=== PATIENT | male | born 1960 | race Caucasian/White ===

== ENCOUNTER 2016-08-17 07:08 | Outpatient (CLI) | payer OTHER ==
[2016-08-17 12:37] LABS: BILIRUBIN,URINE NEGATIVE (NEGATIVE)
[2016-08-17 13:31] LABS: HEMOGLOBIN A1C 0.67 g/dL
[2016-08-17 13:44] LABS: ALBUMIN/GLOBULIN RATIO 1.4 (1.0-2.2); BILIRUBIN,TOTAL 0.7 mg/dL (0.2-1.0); BUN - BLOOD UREA NITROGEN 23 mg/dL (6-20); CARBON DIOXIDE - CO2 23 mmol/L (21-32); CHLORIDE 102 mmol/L (101-111); CHOL/HDL RATIO 6.3 (<5.0); CHOLESTEROL 188 mg/dL; CREATININE 0.9 mg/dL (0.6-1.2); GFR - MDRD 87 (>89); GLUCOSE 111 mg/dL (70-100); HDL CHOLESTEROL 30 mg/dL; LDL/HDL RATIO 3.3 (<3.6); POTASSIUM 3.9 mmol/L (3.5-5.0); SODIUM 136 mmol/L (135-145); TOTAL PROTEIN 7.3 g/dL (6.7-8.2); TRIGLYCERIDES 289 mg/dL; VLDL CHOLESTEROL 58 mg/dL
== END 2016-08-17 07:09 | disposition home or self-care (01) ==
LOC: LAB.WCP 07:08
PROVIDERS: ATTEND Family Medicine
DX: E74.39 Other disorders of intestinal carbohydrate absorption (principal); E78.5 Hyperlipidemia, unspecified; I10 Essential (primary) hypertension; Z87.442 Personal history of urinary calculi; Z12.5 Encounter for screening for malignant neoplasm of prostate
CPT/HCPCS: 36415; 80053; 80061; 81001; 83036; 84153

== ENCOUNTER 2017-09-09 07:40 | Outpatient (CLI) | payer OTHER ==
[2017-09-09 12:55] LABS: ALBUMIN 4.2 g/dL (3.2-5.5); ALBUMIN/GLOBULIN RATIO 1.3 (1.0-2.2); ALKALINE PHOSPHATASE 66 IU/L (42-121); ALT ALANINE AMINOTRANSFERASE 27 IU/L (10-60); AST ASPARTATE AMINOTRANSFERASE 27 IU/L (10-42); BILIRUBIN,TOTAL 0.9 mg/dL (0.2-1.0); BUN - BLOOD UREA NITROGEN 18 mg/dL (6-20); CALCIUM 8.9 mg/dL (8.5-10.3); CARBON DIOXIDE - CO2 25 mmol/L (21-32); CHLORIDE 100 mmol/L (101-111); CHOL/HDL RATIO 4.5 (<5.0); CHOLESTEROL 166 mg/dL; GFR - MDRD 76 (>89); GLUCOSE 111 mg/dL (70-100); HDL CHOLESTEROL 37 mg/dL; LDL CHOLESTEROL,CALCULATED 73 mg/dL; SODIUM 134 mmol/L (135-145); TOTAL PROTEIN 7.4 g/dL (6.7-8.2); VLDL CHOLESTEROL 56 mg/dL
[2017-09-09 13:29] LABS: HB2 TOTAL 17.5 g/dL; HEMOGLOBIN A1C 0.67 g/dL; HEMOGLOBIN A1C % 5.7 % (4.6-6.2)
== END 2017-09-09 23:59 | disposition home or self-care (01) ==
LOC: LAB.WCP 07:40
PROVIDERS: ATTEND Family Medicine
DX: E74.39 Other disorders of intestinal carbohydrate absorption (principal); E78.5 Hyperlipidemia, unspecified; I10 Essential (primary) hypertension; Z12.5 Encounter for screening for malignant neoplasm of prostate
CPT/HCPCS: 36415; 80053; 80061; 83036; 83721; 84153

== ENCOUNTER 2017-09-21 18:52 | Outpatient (CLI) | payer OTHER ==
--- NOTE | 2017-09-22 11:15 | Ultrasound Report ---
Procedure Date: 09/21/2017 Accession Number: [id number] / [id number] Procedure: US - Abdomen Complete CPT Code: FULL RESULT: EXAM: Abdomen Complete DATE: 09/21/2017 8:31 PM CLINICAL HISTORY: FLANK PAIN,RIGHT COMPARISON: None. TECHNIQUE: Real-time scanning was performed with static images obtained. FINDINGS: Liver: Enlarged and echogenic, compatible with fatty infiltration 23 cm. Main portal vein flow: Hepatopetal. Gallbladder: Cholelithiasis. No wall thickening or pericholecystic fluid. Biliary System: Common bile duct measures 3 mm. No intrahepatic or extrahepatic ductal dilatation. Pancreas: Visualized portion is unremarkable. Kidneys: Right: 13 cm longitudinally. Cortical cysts. No hydronephrosis. Left: 12 cm longitudinally. Cortical cysts. Possible nonobstructing calculus. No hydronephrosis. Spleen: 11.6 cm. Normal in size and echotexture. Aorta and Inferior Vena Cava: Unremarkable. IMPRESSION: Fatty infiltration the liver. Cholelithiasis, without evidence of biliary obstruction. Possible nonobstructing left renal calculus. If clinically warranted, CT would be more sensitive. RADIA
== END 2017-09-21 18:53 | disposition home or self-care (01) ==
LOC: DI 18:52
PROVIDERS: ATTEND Family Medicine
DX: K76.0 Fatty (change of) liver, not elsewhere classified (principal); K80.20 Calculus of gallbladder without cholecystitis without obstruction
CPT/HCPCS: 76700

== ENCOUNTER 2017-10-18 11:35 | Outpatient (CLI) | payer OTHER ==
[2017-10-18] MEDS ORDERED: SINCALIDE 5 MCG VIAL ONE (13:59)
--- NOTE | 2017-10-18 15:50 | Nuclear Medicine Report ---
Procedure Date: 10/18/2017 Accession Number: [id number] / [id number] Procedure: NM - Hepatobiliary HIDA w/ Rx CPT Code: FULL RESULT: EXAM: HEPATOBILIARY SCAN WITH CCK/KINEVAC ADMINISTRATION EXAM DATE: 10/18/2017 11:54 AM. CLINICAL HISTORY: FLANK PAIN, RIGHT. COMPARISON: 09/21/2017. TECHNIQUE: Following the intravenous administration of 5.3 mCi of Tc99m Mebrofenin, a hepatobiliary scan was done centered on the liver and gallbladder in multiple sequential images and projections. Following the intravenous administration of 2.98 mcg of CCK/ Kinevac over the course of approximately 60 minutes, dynamic imaging was done and the gallbladder ejection fraction was calculated. FINDINGS: Normal extraction of tracer from the blood pool indicating normal hepatocellular function. The liver size and shape is grossly within normal limits. There is activity visualized within the bile ducts, gallbladder, and small bowel within the first hour. With CCK administration, the gallbladder demonstrates an effective contraction. The gallbladder ejection fraction is calculated to be 21%, well below the lower limit of normal of 38% for a 60-minute injection. The patient did not report symptoms after CCK administration. No evidence of enteric reflux into the stomach. No significant collection of tracer remaining in the common bile duct by the end of the study. IMPRESSION: 1. Patent cystic duct. 2. Patent common bile duct. 3. Negative for acute cholecystitis. 4. No enterogastric bile reflux. 5. Gallbladder ejection fraction of 21%. In the presence of gallstones, this is consistent with chronic cholecystitis. RADIA
== END 2017-10-18 11:36 | disposition home or self-care (01) ==
LOC: DI 11:35
PROVIDERS: ATTEND Family Medicine
DX: R10.9 Unspecified abdominal pain (principal); I10 Essential (primary) hypertension; E66.01 Morbid (severe) obesity due to excess calories
CPT/HCPCS: 78227

== ENCOUNTER 2017-11-23 15:37 | Outpatient (CLI) | payer OTHER ==
[2017-11-23 16:43] LABS: BILIRUBIN,URINE NEGATIVE (NEGATIVE); GLUCOSE, URINE (UA) NEGATIVE (NEGATIVE); KETONES,URINE (UA) NEGATIVE (NEGATIVE); LEUKOCYTE ESTERASE, URINE NEGATIVE (NEGATIVE); NITRITE,URINE NEGATIVE (NEGATIVE); OCCULT BLOOD,URINE TRACE-INTA (NEGATIVE); PROTEIN,URINE NEGATIVE (NEGATIVE); UROBILINOGEN,URINE 0.2 (NORMAL) E.U./dL (NORMAL)
[2017-11-23 16:44] LABS: BASOPHILS % (AUTO) 0.5 %; EOSINOPHILS # (AUTO) 0.1 10^3/uL (0.0-0.7); EOSINOPHILS % (AUTO) 0.8 %; HGB - HEMOGLOBIN 14.9 g/dL (14.0-18.0); LYMPHOCYTES % (AUTO) 27.9 %; MEAN CORPUSCULAR HEMOGLOBIN 30.4 pg (27.0-31.0); MEAN CORPUSCULAR VOLUME 86.9 fL (80.0-94.0); MEAN PLATELET VOLUME 7.4 fL (7.4-11.4); MONOCYTES # (AUTO) 0.7 10^3/uL (0.0-1.0); MONOCYTES % (AUTO) 6.8 %; NEUTROPHILS # (AUTO) 6.8 10^3/uL (1.5-6.6); PLT - PLATELET COUNT 307 10^3/uL (130-450); RED BLOOD COUNT 4.91 10^6/uL (4.70-6.10); RED CELL DISTRIBUTION WIDTH 12.6 % (12.0-15.0); WHITE BLOOD COUNT 10.6 x10^3/uL (4.8-10.8)
[2017-11-23 16:50] LABS: BACTERIA,URINE Rare /HPF (None Seen); CLARITY,URINE CLEAR (CLEAR); SQUAMOUS EPITHELIAL CELL,UR RARE Squamous (<= Few)
[2017-11-23 16:57] LABS: ALBUMIN 4.2 g/dL (3.2-5.5); ALBUMIN/GLOBULIN RATIO 1.4 (1.0-2.2); BILIRUBIN,TOTAL 0.7 mg/dL (0.2-1.0); CALCIUM 8.9 mg/dL (8.5-10.3); CREATININE 1.2 mg/dL (0.6-1.2); TOTAL PROTEIN 7.2 g/dL (6.7-8.2)
== END 2017-11-23 15:38 | disposition home or self-care (01) ==
LOC: LAB 15:37
PROVIDERS: ATTEND Internal Medicine Gastroenterology
DX: I10 Essential (primary) hypertension (principal); Z87.442 Personal history of urinary calculi
CPT/HCPCS: 36415; 80053; 81001; 83690; 85025; 87086

== ENCOUNTER 2017-11-23 15:44 | Outpatient (CLI) | payer OTHER | END 2017-11-23 15:45 | disposition home or self-care (01) | LOC: RT 15:44 | PROVIDERS: ATTEND Internal Medicine Gastroenterology | DX: I10 Essential (primary) hypertension (principal); Z87.442 Personal history of urinary calculi | CPT/HCPCS: 36415; 80053; 81001; 83690; 85025; 87086; 93005 ==

== ENCOUNTER 2017-11-28 06:06 | Day surgery (SDC) | payer OTHER ==
[2017-11-28] MEDS ORDERED: LACTATED RINGERS 1,000 ML IV ONE ×2 (07:00→09:48)
[2017-11-28] MEDS ORDERED: ceFAZolin 2 GM/50 ML 2 GM/50 ML BAG IV ONE (07:08)
[2017-11-28] MEDS ORDERED: ceFAZolin 1 GM VIAL ONE (07:09)
--- NOTE | 2017-11-28 07:14 | ANESTHESIA ---
Pre-Anesthesia VS, & Labs - Diagnosis Cholelithiasis - Procedure Lap iliana Vital Signs: Temp Pulse Resp BP Pulse Ox 36.4 C L 18 121/84 H 96 11/28/17 06:30 11/28/17 06:30 11/28/17 06:30 11/28/17 06:30 Height 5 ft 11 in Weight (kg) 116.5 kg - NPO >8 hours - Lab Results Lab results reviewed: Yes Home Medications and Allergies Home Medications: Ambulatory Orders Medication Instructions Recorded Confirmed Lisinopril 20 mg PO DAILY 11/25/17 11/28/17 Pantoprazole Sodium [Protonix] 20 mg PO DAILY 11/25/17 11/28/17 Senna [Senokot] 8.6 mg PO DAILY 11/25/17 11/28/17 Allergies/Adverse Reactions: Allergies Allergy/AdvReac Type Severity Reaction Status Date / Time No Known Drug Allergies Allergy Verified 11/25/17 12:50 Anes History & Medical History - Anesthetic History Anesthesia Complications: reports: No previous complications Family history of Anesthesia Complications: Denies Family history of Malignant Hyperthermia: Denies - Medical History Cardiovascular: reports: Hypertension Pulmonary: reports: None Gastrointestinal: reports: GERD Urinary: reports: Kidney stones Neuro: reports: None Musculoskeletal: reports: None Endocrine/Autoimmune: reports: None Blood Disorders: reports: None Skin: reports: None Smoking Status: Never smoker Psychosocial: reports: No issues indicated - Surgical History General: Hiatal hernia repair, EGD Eyes Ears Nose Throat (EENT): Other (wisdom teeth) Urologic: Ureterolithotomy (stones) Exam General: Alert Dental: WNL Mouth Opening: Greater than 4 Fingerbreadths Neck Mobility: Normal Mallampati classification: I Thyromental Distance: greater than 6 cm Respiratory: Lungs clear Cardiovascular: Regular rate Mental/Cognitive Status: Alert/Oriented X3 Cognitive Status: Within normal limits Plan Anesthesia Type: General Consent for Procedure(s) Verified and Reviewed: Yes Code Status: Attempt Resuscitation ASA classification: 2-Mild systemic disease Is this case an emergency?: No
[2017-11-28] MEDS ORDERED: BUPIVACAINE 0.5%-EPI 1:200000 PF 30 ML VIAL ONE (08:05)
[2017-11-28] MEDS ORDERED: BUPIVACAINE 0.5%-EPI 1:200000 PF 30 ML VIAL SUBQ ONE ×3 (08:10→09:45)
[2017-11-28] MEDS ORDERED: PHENYLEPHRINE 50 MG/5 ML VIAL IV ONE (08:15)
[2017-11-28] MEDS ORDERED: ONDANSETRON 4 MG/2 ML VIAL IVP ONE (08:15)
[2017-11-28] MEDS ORDERED: KETOROLAC 30 MG/ML VIAL IVP ONE (08:15)
[2017-11-28] MEDS ORDERED: ePHEDrine 50 MG/ML AMP IVP ONE (08:15)
[2017-11-28] MEDS ORDERED: DEXAMETHASONE 4 MG/ML VIAL IVP ONE (08:15)
[2017-11-28] MEDS ORDERED: PROPOFOL 200 MG/20 ML VIAL IVP ONE (08:15)
[2017-11-28] MEDS ORDERED: fentaNYL 250 MCG/5 ML VIAL IVP ONE (08:15)
[2017-11-28] MEDS ORDERED: MIDAZOLAM 2 MG/2 ML VIAL IVP ONE (08:15)
[2017-11-28] MEDS ORDERED: NEOSTIGMINE 1 MG/1 ML 10 ML MDV IVP ONE (08:15)
[2017-11-28] MEDS ORDERED: GLYCOPYRROLATE 1 MG/5 ML VIAL IVP ONE (08:15)
[2017-11-28] MEDS ORDERED: ceFAZolin 1 GM VIAL IV ONE (08:15)
[2017-11-28] MEDS ORDERED: ROCURONIUM 50 MG/5 ML VIAL IVP ONE (08:15)
[2017-11-28] MEDS ORDERED: HYDROmorphone 1 MG/ML SYRINGE IVP ONE (08:15)
[2017-11-28] MEDS ORDERED: ceFAZolin 1 GM VIAL IR ONE (09:30)
[2017-11-28] MEDS ORDERED: oxyCOD/ACETAMIN 5 MG/325 MG TABLET PO ONE (12:10)
[2017-11-28 12:53] VITALS: BP 134/82
--- NOTE | 2017-11-28 13:17 | OPERATIVE REPORT ---
DATE OF SERVICE: 11/28/2017 Physician: Shaun Liao MD PREOPERATIVE DIAGNOSIS: Symptomatic cholelithiasis. POSTOPERATIVE DIAGNOSES 1. Symptomatic cholelithiasis. 2. Recurrent incarcerated ventral/umbilical hernia. PROCEDURES PERFORMED 1. Laparoscopic cholecystectomy. 2. Open repair of recurrent incarcerated ventral/umbilical hernia with Ventralex soft tissue patch. ANESTHESIA: General endotracheal by Maday Abarca CRNA. SURGEON: Shaun Liao MD. ESTIMATED BLOOD LOSS: 25 mL. COMPLICATIONS: None. FINDINGS: Laparoscopy revealed a fatty liver, a normal external appearing gallbladder, normal caliber bile ducts, and no abnormality associated with the stomach, duodenum, and visualized portions of the small and large bowel. Omentum was densely adherent to the anterior abdominal wall in the umbilical region related to prior umbilical hernia repair with mesh, with evidence of a recurrent supraumbilical ventral hernia with omentum incarcerated within the hernia sac. The fascial defect was approximately 3 cm. The incarcerated omentum was viable. A 6.4 cm diameter Ventralex soft tissue patch was used for the reconstruction. INDICATIONS: The patient is a 57-year-old gentleman with recurrent episodes of upper abdominal pain, nausea and vomiting, thought to be due to cholelithiasis, which was documented on diagnostic imaging. Liver function tests and lipase are normal. Of note is that he has a history of a prior umbilical hernia repair with mesh using an infraumbilical approach. TECHNIQUE: After informed consent, the patient was taken to the operating room, where he was placed under general endotracheal anesthesia. Preoperative preparation included administration of 3 grams cefazolin intravenously within an hour of the incision, application of sequential calf compression boots. His abdomen was prepared with ChloraPrep solution and draped in the usual sterile fashion. A supraumbilical transverse incision was made and carried down to the subcutaneous tissues, where the incarcerated recurrent ventral hernia was identified. The hernia sac was entered. The contents were reduced after adhesions were lysed, and the peritoneal cavity was then entered. A 10 mm Mo cannula was inserted. Pneumoperitoneum was achieved with carbon dioxide. A 10-mm 30-degree [place] telescope was then inserted. Laparoscopy was carried out. Findings were as noted above. Three additional 5 mm ports were placed in the right upper quadrant. The gallbladder was exposed, grasped, and retracted in the cephalad and lateral direction, exposing the cystic triangle of [place]. This region was carefully dissected using hook electrocautery, isolating the cystic duct adjacent to the gallbladder where it was mobilized circumferentially. There were small branches of the cystic artery that were ligated and divided with electrocautery, as the critical view of safety was obtained. The cystic duct was triply clipped distally, doubly proximally, adjacent to the gallbladder and divided between. The gallbladder was excised from the liver bed using electrocautery for dissection and hemostasis. It was detached intact, placed in an organ retrieval bag, extracted, opened on a side table with findings noted above, and the tissue sent for pathologic evaluation. After hemostasis was assured, the right upper quadrant was copiously irrigated with saline solution, following which instruments and cannulas were removed under direct vision. Pneumoperitoneum was allowed to escape, and attention was turned towards repairing the recurrent umbilical/ventral hernia. The supraumbilical incision was extended bilaterally for a total incision length of approximately 4 cm. The hernia sac was fully mobilized and excised. Hernia contents and adhesions of the omentum to the prior mesh and anterior abdominal wall were fully mobilized with sharp and blunt dissection, hemostasis being achieved with electrocautery and 2-0 Vicryl ties. After the omentum had completely been freed from the anterior abdominal wall and the fascial edges mobilized circumferentially, the caudal edge of which was prior mesh, the defect was measured and seen to be approximately 3 cm in diameter. A 6 cm Ventralex soft tissue patch, which was soaked in antibiotic solution containing 1 gram cefazolin per liter, was placed in the preperitoneal position, and, with the strap holding it against the anterior abdominal wall, the fascial edges were reapproximated with interrupted 0 Ethibond sutures, securing the strap to the wound closure to the fascial wound closure in at least two places with the sutures. Excess strap was excised and again after hemostasis was assured, the wound was irrigated with antibiotic solution. The wound closure was accomplished in layers with continuous 3-0 Vicryl reapproximating the subcutaneous tissues, and 4-0 Monocryl for subcuticular skin closure, followed by Dermabond. Monocryl and Dermabond were used for wound closure of the three upper 5 mm port sites as well. A total of 20 mL of 0.5% Marcaine with epinephrine was infiltrated into the incision to assist in postoperative analgesia. Anesthesia was terminated. The patient was transferred to the recovery room in satisfactory condition. Sponge and needle counts were correct x2. No drains were used. cc: Gerardo Aguilera M.D. TD: 11/28/2017 10:37 MTDD
== END 2017-11-28 06:07 | disposition home or self-care (01) ==
LOC: SDS 06:06
PROVIDERS: ATTEND Internal Medicine Gastroenterology
PROC: 0FT44ZZ Resection of Gallbladder, Percutaneous Endoscopic Approach (ICD-10-PCS; principal; 2017-11-28 07:30)
DX: K80.20 Calculus of gallbladder without cholecystitis without obstruction (principal); K43.2 Incisional hernia without obstruction or gangrene; I10 Essential (primary) hypertension; E66.9 Obesity, unspecified; E78.5 Hyperlipidemia, unspecified; K21.9 Gastro-esophageal reflux disease without esophagitis; Z68.35 Body mass index [BMI] 35.0-35.9, adult
CPT/HCPCS: 47562; A9270; C1781; J0690; J1170; J3010; J7120; 88304

== ENCOUNTER 2018-09-19 07:04 | Outpatient (CLI) | payer OTHER ==
[2018-09-19 12:16] LABS: BASOPHILS # (AUTO) 0.1 10^3/uL (0.0-0.1); BASOPHILS % (AUTO) 0.5 %; EOSINOPHILS # (AUTO) 0.2 10^3/uL (0.0-0.7); EOSINOPHILS % (AUTO) 1.8 %; HGB - HEMOGLOBIN 14.5 g/dL (14.0-18.0); LYMPHOCYTES # (AUTO) 3.2 10^3/uL (1.5-3.5); LYMPHOCYTES % (AUTO) 31.2 %; MEAN CORPUSCULAR HEMOGLOBIN 29.2 pg (27.0-31.0); MEAN CORPUSCULAR HGB CONC 32.7 g/dL (32.0-36.0); MEAN CORPUSCULAR VOLUME 89.5 fL (80.0-94.0); MEAN PLATELET VOLUME 9.6 fL (7.4-11.4); MONOCYTES # (AUTO) 0.7 10^3/uL (0.0-1.0); MONOCYTES % (AUTO) 7.1 %; NEUTROPHILS % (AUTO) 58.8 %; PLT - PLATELET COUNT 314 10^3/uL (130-450); RED BLOOD COUNT 4.96 10^6/uL (4.70-6.10); RED CELL DISTRIBUTION WIDTH 12.5 % (12.0-15.0); WHITE BLOOD COUNT 10.1 x10^3/uL (4.8-10.8)
[2018-09-19 12:59] LABS: ALBUMIN 4.1 g/dL (3.2-5.5); ALBUMIN/GLOBULIN RATIO 1.4 (1.0-2.2); ALKALINE PHOSPHATASE 63 IU/L (42-121); ALT ALANINE AMINOTRANSFERASE 31 IU/L (10-60); AST ASPARTATE AMINOTRANSFERASE 24 IU/L (10-42); BILIRUBIN,TOTAL 0.7 mg/dL (0.2-1.0); BUN - BLOOD UREA NITROGEN 21 mg/dL (6-20); CALCIUM 8.7 mg/dL (8.5-10.3); CARBON DIOXIDE - CO2 21 mmol/L (21-32); CHLORIDE 104 mmol/L (101-111); CHOL/HDL RATIO 5.8 (<5.0); CHOLESTEROL 186 mg/dL; GFR - MDRD 76 (>89); GLUCOSE 119 mg/dL (70-100); HDL CHOLESTEROL 32 mg/dL; LDL CHOLESTEROL,CALCULATED 82 mg/dL; LDL/HDL RATIO 2.6 (<3.6); SODIUM 136 mmol/L (135-145); VLDL CHOLESTEROL 72 mg/dL
== END 2018-09-19 23:59 | disposition home or self-care (01) ==
LOC: LAB.WCP 07:04
PROVIDERS: ATTEND Family Medicine
DX: E74.39 Other disorders of intestinal carbohydrate absorption (principal); E78.5 Hyperlipidemia, unspecified; I10 Essential (primary) hypertension; Z12.5 Encounter for screening for malignant neoplasm of prostate
CPT/HCPCS: 36415; 80053; 80061; 83721; 84153; 84443; 85025

== ENCOUNTER 2018-10-11 08:09 | Outpatient (CLI) | payer OTHER | END 2018-10-11 08:10 | disposition home or self-care (01) | LOC: LAB.WCP 08:09 | PROVIDERS: ATTEND Family Medicine | DX: M10.9 Gout, unspecified (principal) | CPT/HCPCS: 36415; 84550 ==

== ENCOUNTER 2019-01-23 10:15 | Outpatient (CLI) | payer OTHER ==
[2019-01-23 20:43] VITALS: BP 116/78
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
== END 2019-01-23 10:16 | disposition home or self-care (01) ==
LOC: SC 10:15
PROVIDERS: ATTEND Internal Medicine Pulmonary Disease
DX: G47.8 Other sleep disorders (principal); G47.10 Hypersomnia, unspecified; E66.9 Obesity, unspecified; Z68.33 Body mass index [BMI] 33.0-33.9, adult
CPT/HCPCS: 99203; 99212

== ENCOUNTER 2019-02-22 20:25 | Outpatient (CLI) | payer OTHER | END 2019-02-22 20:26 | disposition home or self-care (01) | LOC: SC 20:25 | PROVIDERS: ATTEND Internal Medicine Pulmonary Disease | DX: G47.33 Obstructive sleep apnea (adult) (pediatric) (principal); G47.61 Periodic limb movement disorder; E66.9 Obesity, unspecified; Z68.33 Body mass index [BMI] 33.0-33.9, adult | CPT/HCPCS: 95810 ==

== ENCOUNTER 2019-03-19 11:14 | Outpatient (CLI) | payer OTHER ==
[2019-03-19 12:34] VITALS: BP 104/64
--- NOTE | 2019-03-19 12:34 | SLEEP CARE CONSULTATION ---
Information from patient questionnaire entered by Suzie Mancia. I have reviewed and concur with the information entered by Suzie Mancia. This document represents the service I personally performed and the decisions made by me, Mary Parikh RN, MSN, [employer]. History of Present Illness Initial [place] Sleepiness Scale score: 11 Current [place] Sleepiness Scale score: 10 Additional HPI information: ELMER MASSEY returns for follow up and results of the recently performed polysomnography. I explained the pathophysiology behind obstructive sleep apnea. We then spent quite a bit of time discussing different treatment options. For mild obstructive sleep apnea, surgery and oral appliance are alternatives to nasal CPAP therapy but in moderate or severe cases, nasal CPAP is the most effective and reliable treatment. Because apnea is primarily in supine position, then positional management therapy could be effective. Methods discussed such as positioning with pillows, using a T-shirt with tennis balls in the back, and shown commercial products that have a pillow format on back to prevent supine sleep. I reviewed the impact of weight changes on sleep apnea and strongly recommended losing weight. However, due to the patient's hypertension and arrhythmia, I explained that CPAP would be the gold standard of treatment. After some discussion, the patient opted to go with the nasal CPAP therapy. Nasal autoCPAP set at [id number] will be ordered with rationale explained. A manual titration study will be ordered if unable to find optimal pressure with office adjustments. I explained how CPAP machine works with sample devices Resp[employer]ics Dreamstation and [employer] [id number] and what to expect when using the machine. Using CPAP every night in order to get used to it was emphasized. Patient advised to put CPAP mask on before getting into bed so as not to fall asleep without CPAP. To assist acclimation to CPAP use, it could also be used for a short time during day while reading or watching TV. The patient was instructed to call the CPAP s upplier to discuss any mechanical problem that may occur. If the mask given is uncomfortable or is difficult to keep on through the night even with adjustment, contact the CPAP supplier as many will replace with another mask style if notified before 30 days. If snoring or perceives is not getting enough air or too much air from the machine, notify this office. AAS patient education PAP tips reviewed and given to patient. Patient counseled not drink alcohol less than 4 hours before bedtime as it can increase snoring and apnea. Patient was cautioned about risks of drowsy driving until sleepiness symptoms resolve. Patient denies drowsy driving. AAS patient education on snoring and sleep apnea given and reviewed. Sleep Study - Results Polysomnography/Home Sleep Study results: The quality of the study is good. The patient had slightly reduced sleep efficiency due to sleep onset insomnia. Except for mild sleep fragmentation, the sleep architecture was normal. Respiratory monitoring showed mild obstructive sleep apnea-hypopnea (AHI = 9.2) associated with frequent arousals, oxyhemoglobin desaturation and mild hypoxia ([place]asha oxygen saturation of 87%). The respiratory events occurred almost exclusively during supine sleep (supine AHI = 19.6; non-supine = 2.16). Snore was infrequent and light in intensity. There was severe periodic leg movement of sleep contributing to the sleep fragmentation. Cardiac rhythm was normal sinus rhythm with frequent short runs of supraventricular tachycardia.. No abnormal behavior (parasomnia) observed during the night. Allergies and Home Medications Known drug allergies: No Home medication list reviewed: Yes Allergy and home medication list: lisinopril 20mg daily Senokot daily Protonix 20mg daily atorvastatin 10mg daily allopurinol 100mg 2 tabs daily Review of Systems Review of systems same as previous: Yes Physical Exam Blood Pressure: 104/64 Cuff size: long Heart Rate: 68 O2 Saturation: 98 Height: 5 ft 11 in Weight: 249 lb Body Mass Index: 34.7 BMI Classification: Obesity Class 1 Impression and Plan 1. Obstructive Sleep Apnea-Hypopnea Syndrome, mild but moderate supine, with lowest oxygen saturation of 85%. Obviously this is the cause of the patients symptoms of unrefreshed sleep, and excessive daytime sleepiness. Positive pressure therapy could benefit his hypertension and arrhythmia. As mentioned above, the patient will be started on nasal autoCPAP therapy with pressure set at 4-15 cmH2O. A manual titration study will be completed if unable to find optimal treatment pressure with office adjustments. Compliance guidelines also reviewed. A copy of compliance guidelines will be given for reference at check out. Because the apnea is more severe supine, I instructed to avoid sleeping supine using pillow positioning until able to start CPAP use. 2. Periodic limb movement, severe, that did fragment patients sleep. Periodic limb movement of sleep (PLMS) is characterized by episodes of repetitive limb movements that occur during sleep and usually involve the lower limbs. The etiology is unknown but can be associated with restless leg syndrome (RLS), neuropathy, spinal cord diseases, kidney disease, rheumatological disorders, narcolepsy, obstructive sleep apnea, and REM sleep behavior disorder. Other factors that can increase PLMS and/or RLS are heredity and iron deficiency as reflected by a low serum ferritin level below 50 to 75mcg / L. Several medications can precipitate or aggravate PLMS such as selective serotonin re- uptake inhibitor antidepressants, tricyclic antidepressants, lithium, and dopamine receptor antagonists with the exception of bupropion. Caffeine can al so aggravate PLMS and should be avoided. Sleep hygiene methods can also improve sleep as well as lifestyle changes such as regular exercise. Patient was advised that evaluation is indicated due to nightly foot and toe pain and numbness and tingling. Patient advised to make appointment and agreed with plan. 3. Arrhythmia, frequent short runs of supraventricular tachycardia ( SVT) noted on sleep study. It has been shown that repetitive nocturnal apneas can increase arrhythmias but is generally seen with severe oxygen desaturation according to reference in Sleep principles and practices. Patients hypoxia was mild. Patient advised to follow up with PCP for further evaluation. In addition 911 guidelines card given with rationale discussed. A few sample tracings of a rrhythmia are included with this report. * Nasal auto CPAP therapy, pressure at 4-15 cm H2O. * Attempt to lose weight. * Avoid alcohol consumption near bedtime. * Avoid supine sleep until using CPAP. * The patient is again cautioned about driving until sleepiness completely resolves. * Follow up with PCP for further evaluation of SVT and PLMS / foot pain and parathesia * Return one month after CPAP obtained. I will assess response to therapy and compliance at that time. Time Spent with Patient (minutes): 48 I spent 100% of this visit face to face with the patient with greater than 50% of this was spent time counseling the patient and coordination of care.
== END 2019-03-19 11:15 | disposition home or self-care (01) ==
LOC: SC 11:14
PROVIDERS: ATTEND Nurse Practitioner Family
DX: G47.33 Obstructive sleep apnea (adult) (pediatric) (principal); G47.61 Periodic limb movement disorder; I49.9 Cardiac arrhythmia, unspecified; E66.9 Obesity, unspecified; Z68.34 Body mass index [BMI] 34.0-34.9, adult
CPT/HCPCS: 99212; 99215

== ENCOUNTER 2019-04-03 11:13 | Outpatient (CLI) | payer OTHER ==
[2019-04-03 18:47] LABS: BASOPHILS # (AUTO) 0.1 10^3/uL (0.0-0.1); BASOPHILS % (AUTO) 0.4 %; EOSINOPHILS % (AUTO) 0.1 %; HGB - HEMOGLOBIN 16.5 g/dL (14.0-18.0); LYMPHOCYTES # (AUTO) 2.1 10^3/uL (1.5-3.5); MEAN CORPUSCULAR HGB CONC 33.1 g/dL (32.0-36.0); MEAN CORPUSCULAR VOLUME 90.7 fL (80.0-94.0); MEAN PLATELET VOLUME 9.9 fL (7.4-11.4); MONOCYTES # (AUTO) 0.9 10^3/uL (0.0-1.0); MONOCYTES % (AUTO) 6.6 %; NEUTROPHILS % (AUTO) 77.2 %; PLT - PLATELET COUNT 354 10^3/uL (130-450); RED CELL DISTRIBUTION WIDTH 12.9 % (12.0-15.0); WHITE BLOOD COUNT 14.2 x10^3/uL (4.8-10.8)
[2019-04-03 19:20] LABS: ALBUMIN 4.5 g/dL (3.2-5.5); ALBUMIN/GLOBULIN RATIO 1.4 (1.0-2.2); ALKALINE PHOSPHATASE 72 IU/L (42-121); ALT ALANINE AMINOTRANSFERASE 26 IU/L (10-60); AST ASPARTATE AMINOTRANSFERASE 23 IU/L (10-42); BILIRUBIN,TOTAL 0.9 mg/dL (0.2-1.0); BUN - BLOOD UREA NITROGEN 20 mg/dL (6-20); CARBON DIOXIDE - CO2 23 mmol/L (21-32); CHLORIDE 100 mmol/L (101-111); CHOL/HDL RATIO 3.3 (<5.0); CHOLESTEROL 122 mg/dL; GFR - MDRD 76 (>89); GLUCOSE 118 mg/dL (70-100); HDL CHOLESTEROL 37 mg/dL; LDL CHOLESTEROL,CALCULATED 47 mg/dL; LDL/HDL RATIO 1.3 (<3.6); SODIUM 134 mmol/L (135-145); TOTAL PROTEIN 7.7 g/dL (6.7-8.2); VLDL CHOLESTEROL 38 mg/dL
[2019-04-03 19:47] LABS: HB2 TOTAL 16.7 g/dL; HEMOGLOBIN A1C 0.66 g/dL; HEMOGLOBIN A1C % 5.8 % (4.6-6.2)
== END 2019-04-03 23:59 | disposition home or self-care (01) ==
LOC: LAB.WCP 11:13
PROVIDERS: ATTEND Family Medicine
DX: E78.5 Hyperlipidemia, unspecified (principal); I10 Essential (primary) hypertension; E74.39 Other disorders of intestinal carbohydrate absorption; R06.00 Dyspnea, unspecified
CPT/HCPCS: 36415; 80053; 80061; 83036; 83721; 84443; 84484; 85025

== ENCOUNTER 2019-04-04 13:04 | Outpatient (CLI) | payer OTHER | END 2019-04-04 23:59 | disposition home or self-care (01) | LOC: LAB.WCP 13:04 | PROVIDERS: ATTEND Family Medicine | DX: R06.00 Dyspnea, unspecified (principal); I10 Essential (primary) hypertension | CPT/HCPCS: 36415; 84484 ==

== ENCOUNTER 2019-08-30 15:22 | Outpatient (CLI) | payer OTHER ==
[2019-08-30 18:54] LABS: BASOPHILS # (AUTO) 0.1 10^3/uL (0.0-0.1); BASOPHILS % (AUTO) 0.7 %; EOSINOPHILS # (AUTO) 0.1 10^3/uL (0.0-0.7); EOSINOPHILS % (AUTO) 0.6 %; HGB - HEMOGLOBIN 15.6 g/dL (14.0-18.0); LYMPHOCYTES % (AUTO) 29.1 %; MEAN CORPUSCULAR HEMOGLOBIN 30.4 pg (27.0-31.0); MEAN CORPUSCULAR HGB CONC 33.9 g/dL (32.0-36.0); MEAN CORPUSCULAR VOLUME 89.5 fL (80.0-94.0); MEAN PLATELET VOLUME 9.7 fL (7.4-11.4); MONOCYTES # (AUTO) 0.8 10^3/uL (0.0-1.0); MONOCYTES % (AUTO) 7.5 %; NEUTROPHILS # (AUTO) 6.3 10^3/uL (1.5-6.6); NEUTROPHILS % (AUTO) 61.3 %; PLT - PLATELET COUNT 330 10^3/uL (130-450); RED BLOOD COUNT 5.14 10^6/uL (4.70-6.10); RED CELL DISTRIBUTION WIDTH 12.3 % (12.0-15.0); WHITE BLOOD COUNT 10.3 x10^3/uL (4.8-10.8)
[2019-08-30 19:14] LABS: HB2 TOTAL 16.4 g/dL; HEMOGLOBIN A1C 0.62 g/dL; HEMOGLOBIN A1C % 5.6 % (4.6-6.2)
[2019-08-30 19:18] LABS: ALBUMIN 4.9 g/dL (3.2-5.5); ALBUMIN/GLOBULIN RATIO 1.8 (1.0-2.2); ALKALINE PHOSPHATASE 76 IU/L (42-121); ALT ALANINE AMINOTRANSFERASE 27 IU/L (10-60); AST ASPARTATE AMINOTRANSFERASE 21 IU/L (10-42); BILIRUBIN,TOTAL 1.1 mg/dL (0.2-1.0); BUN - BLOOD UREA NITROGEN 19 mg/dL (6-20); CALCIUM 9.1 mg/dL (8.5-10.3); CARBON DIOXIDE - CO2 24 mmol/L (21-32); CHLORIDE 102 mmol/L (101-111); CHOL/HDL RATIO 3.2 (<5.0); CHOLESTEROL 145 mg/dL; CREATININE 0.8 mg/dL (0.6-1.2); GLUCOSE 87 mg/dL (70-100); HDL CHOLESTEROL 46 mg/dL; LDL CHOLESTEROL,CALCULATED 66 mg/dL; LDL/HDL RATIO 1.4 (<3.6); SODIUM 136 mmol/L (135-145); TOTAL PROTEIN 7.7 g/dL (6.7-8.2); VLDL CHOLESTEROL 33 mg/dL
== END 2019-08-30 23:59 | disposition home or self-care (01) ==
LOC: LAB.WCP 15:22
PROVIDERS: ATTEND Family Medicine
DX: R07.89 Other chest pain (principal); N20.0 Calculus of kidney; I10 Essential (primary) hypertension; E78.5 Hyperlipidemia, unspecified; E74.39 Other disorders of intestinal carbohydrate absorption; M10.9 Gout, unspecified; Z12.5 Encounter for screening for malignant neoplasm of prostate
CPT/HCPCS: 36415; 80053; 80061; 83036; 83721; 84153; 84443; 84550; 85025

== ENCOUNTER 2019-09-13 15:19 | Outpatient (CLI) | payer OTHER ==
--- NOTE | 2019-09-13 16:17 | SLEEP CARE CONSULTATION ---
Information from patient questionnaire entered by Suzie Mancia. I have reviewed and concur with the information entered by Suzie Mancia. This document represents the service I personally performed and the decisions made by me, Mary Parikh, RN, MSN, PART TIME RECEPTIONIST. History of Present Illness Service Date and Time: 09/13/2019 1519 Previous diagnosis: Mild, Obstructive Sleep Apnea-Hypopnea Syndrome AHI: 9.2 (in 2019) Reason for follow up: first compliance Equipment type: CPAP Equipment obtained from: [facility] Mask style: Full face Backup mask available: No (keep current mask as spare when replaced) Last cushion change: no change since Prior sleep studies: Yes Year and Where: 2019 - [facility] Type of Sleep Study: Polysomnography CPAP Compliance Data - Data Reviewed with Patient Average duration of nightly device use: 3 hours and 53 minutes Compliance rate %: 34.4 Current pressure setting (cmH2O): 4-15 Humidity setting: off Average residual AHI: 2.8 (90% 5cmH20) Subjective Patient concerns: reports: mask leak noise, condensation in mask/hose (no heated hose but even at low settings - poured moisture out of mask and hose), dry mouth, nose, throat (mild - nose and mouth intermittent), other (would like to t ry a nasal mask ). denies: aerophagia, mask discomfort, air blowing in eyes, nasal congestion, epistaxis Observed to snore while using device: No Current pressure setting perceived as: comfortable On therapy, patient: reports: sleeping better (but waking more often due to moisture in mask even without humidity / feels suffocating ). denies: drowsiness while driving Initial [place] Sleepiness Scale score: 11 (in 2019) Current [place] Sleepiness Scale score: 10 Allergies and Home Medications Known drug allergies: No Home medication list reviewed: Yes (clonazepam twice a day for anxiety) Review of Systems Review of systems same as previous: No (tachycardia evaluation - anxiety - meds ) Physical Exam Blood Pressure: 104/60 Cuff size: long Heart Rate: 63 O2 Saturation: 97 Height: 5 ft 11 in Weight: 247 lb (losing weight) Weight change since last visit: 10 - 15 pounds Body Mass Index: 34.4 BMI Classification: Obese Impression and Plan 1. Obstructive Sleep Apnea-Hypopnea Syndrome, mild, with fair treatment compliance and good apnea control. On CPAP therapy, the patient has better sleep quality and is more rested overall. Compliance affected by ability to use CPAP due to condensation. He has since turned off the humidity and still has moisture in mask affecting his sleep. He does not have heated hose and his DME states not available at this time. He would like to try a nasal mask to see if less moisture accumulation. His DME states he is on the list for new mask style. I will also order these and have his device checked for malfunction and replacement as indicated. I will also reduce his autoCPAP pressure to 4-6cmH20 as his 90% pressure is 5cmH20 and he is planning on losing more weight. Symptoms to report for future pressure change. Compliance guidelines again reviewed and it is hoped with better equipment he will be able to achieve. Patient's apnea severity and rationale for treatment to reduce apnea, improve sleep quality and reduce cardiovascular and cerebrovascular events was reviewed. I also reviewed the benefit of consistent device use of CPAP for hypertension, * * Changeauto CPAP pressure to 4-6 cmH2O * Check CPAP for malfunction. * heated hose * nasal mask fitting * Notify me if snoring with mask or feeling that the pressure is too much or too little * Continue to lose weight * Call this office if any problems using CPAP * Return for follow up in 1-2 months , or sooner if concerns arise Visit Type: In Office Time Spent with Patient (minutes): 30 Provider Statement: I spent 100% of the Face to Face Visit with the patient with greater than 50% spent counseling the patient and coordination of care.
[2019-09-13 16:18] VITALS: BP 104/60
== END 2019-09-13 15:20 | disposition home or self-care (01) ==
LOC: SC 15:19
PROVIDERS: ATTEND Nurse Practitioner Family
DX: G47.33 Obstructive sleep apnea (adult) (pediatric) (principal); E66.9 Obesity, unspecified; Z68.34 Body mass index [BMI] 34.0-34.9, adult
CPT/HCPCS: 99212; 99214

== ENCOUNTER 2019-11-08 16:08 | Outpatient (CLI) | payer OTHER ==
--- NOTE | 2019-11-08 16:46 | SLEEP CARE CONSULTATION ---
Information from patient questionnaire entered by Suzie Mancia. I have reviewed and concur with the information entered by Suzie Mancia. This document represents the service I personally performed and the decisions made by me, Silvia Scott ARNP. History of Present Illness Service Date and Time: 11/08/2019 1608 Previous diagnosis: Mild, Obstructive Sleep Apnea-Hypopnea Syndrome AHI: 9.2 (in 2019) Reason for follow up: other (2 month with pressure change) Equipment type: CPAP Equipment obtained from: [facility] (not able to get supplies as needed) Mask style: Full face Backup mask available: No Last cushion change: hasn't changed Prior sleep studies: Yes Year and Where: 2018 - [facility] Type of Sleep Study: Polysomnography HPI additional information: ELMER MASSEY was diagnosed to have mild, AHI 9.2, obstructive sleep apnea-hypopnea syndrome and returned today for CPAP therapy 2 month pressure change follow-up. Sleep Study - Results Prior sleep studies: Yes Year and Where: 2018 - [facility] CPAP Compliance Data - Data Reviewed with Patient Average duration of nightly device use: 5.05 Compliance rate %: 56.7 Current pressure setting (cmH2O): 4-6 Humidity settin Heated hose settin Average residual AHI: 2.1 Average large leak: 57 sec Compliance data discussion: Patient states after last pressure change, the lower pressure allowed him to be able to use the CPAP more for longer periods of time. Unfortunately in the last few days the pressure has really increased. He washed the mask and hose and since that time air is leaking out of the sides. He states the mask appears to be fine but pressure seems harder. He also would like to use the nasal cushion instead of full face mask because he sweats in the mask and he will remove it because it is not comfortable. Subjective Missed days of use due to: reports: other (mask and pressure issues) Patient concerns: reports: mask discomfort (due to air leaks and gets hot), air blowing in eyes, dry mouth, nose, throat, other (headache). denies: aerophagia, mask leak noise, condensation in mask/hose, nasal congestion, epistaxis Current pressure setting perceived as: too high On therapy, patient: reports: sleeping better, awakening more refreshed, being more awake and alert during the day, more rested overall. denies: drowsiness while driving Initial [place] Sleepiness Scale score: 11 (in 2019) Current [place] Sleepiness Scale score: 11 Allergies and Home Medications Drug allergies reviewed: Yes (nkda) Home medication list reviewed: Yes (no changes) Review of Systems Review of systems same as previous: Yes (no changes) Physical Exam Heart Rate: 86 O2 Saturation: 97 Height: 5 ft 11 in Weight: 246 lb Body Mass Index: 34.2 BMI Classification: Obese Impression and Plan 1. Obstructive Sleep Apnea-Hypopnea Syndrome, mild, with fair treatment compliance and good apnea control. His compliance is at 56.7% which is much better than in September but still needs to improve. I think getting a new mask and reducing the pressure will help him be more compliant with his use of the CPAP. On CPAP therapy, there is improved sleep quality and feels more rested overall. Patient not able to get supplies from [facility] and would like to change to new supplier. He also feel the full face mask makes he face hot and limits his ability to tolerate it on his face. He would like to switch to a nasal cushion type mask. He has been having more mask leaks with air leaking from the sides and he feels the pressure is too high since changing to 4-6 cm H2O at his last visit. I will write for transfer of DME and mask refitting to get better fit and good supply of needs (including heated hose). I will reduce his pressure to 4-5 cm H2O since his 90% average is at 4.7 cm H2O. He will need to follow up in 1-2 months for recheck of his compliance and see how everything is working. Patient's apnea severity and rationale for treatment to reduce apnea, improve sleep quality and reduce cardiovascular and cerebrovascular events was reviewed. I also reviewed the benefit of consistent device use of CPAP for hypertension, . Change auto CPAPpressure at 4-5 cm H2O. Notify me if snoring with the mask or feeling that the pressure is too much or too little. Attempt to lose weight. Transfer DME Mask refitting Return for follow-up in 1-2 months, or sooner if concerns arise. Visit Type: In Office Time Spent with Patient (minutes): 18 Provider Statement: I spent 100% of the Face to Face Visit with the patient with greater than 50% spent counseling the patient and coordination of care.
== END 2019-11-08 16:09 | disposition home or self-care (01) ==
LOC: SC 16:08
PROVIDERS: ATTEND Nurse Practitioner Family
DX: G47.33 Obstructive sleep apnea (adult) (pediatric) (principal); E66.9 Obesity, unspecified; Z68.34 Body mass index [BMI] 34.0-34.9, adult
CPT/HCPCS: 99212; 99213

== ENCOUNTER 2020-01-11 14:41 | Outpatient (CLI) | payer OTHER ==
--- NOTE | 2020-01-11 15:25 | SLEEP CARE CONSULTATION ---
Information from patient questionnaire entered by Rebecca Mraie. I have reviewed and concur with the information entered by Rebecca Marie. This document represents the service I personally performed and the decisions made by , Silvia Scott ARNP. History of Present Illness Service Date and Time: 01/11/2020 1441 Previous diagnosis: Mild, Obstructive Sleep Apnea-Hypopnea Syndrome AHI: 9.2 (in 2019) Reason for follow up: other (2 month follow up pressure change) Equipment type: CPAP Equipment obtained from: Other ([facility]; getting supplies as needed) Mask style: Nasal pillows (likes it much better) Backup mask available: Yes (old mask) Last cushion change: 3-4 weeks Prior sleep [facility]: Yes [facility] HPI additional information: ELMER MASSEY was diagnosed to have mild, AHI 9.2, obstructive sleep apnea-hypopnea syndrome and returned today for CPAP therapy two month pressure change follow- up. Sleep Study - Results Prior sleep [facility]: Yes [facility] Compliance Data - Data Reviewed with Patient Average duration of nightly device use: 6.2 Compliance rate %: 85 Current pressure setting (cmH2O): 4-6 Humidity settin Heated hose settin Average residual AHI: 3.3 Central apnea: 0.2 Obstructive apnea: 0.5 Average large leak: 59 seconds Subjective Patient concerns: reports: dry mouth, nose, throat (dry nose). denies: aerophagia, mask discomfort, air blowing in eyes, mask leak noise, condensation in mask/hose, nasal congestion, epistaxis, other Observed to snore while using device: No Current pressure setting perceived as: comfortable On therapy, patient: reports: sleeping better, awakening more refreshed, being more awake and alert during the day, more rested overall. denies: drowsiness while driving Initial [place] Sleepiness Scale score: 11 (in 2019) Current [place] Sleepiness Scale score: 12 Allergies and Home Medications Drug allergies reviewed: Yes (NKDA) Home medication list reviewed: Yes (no changes) Review of Systems Review of systems same as previous: Yes (no changes) Physical Exam Heart Rate: 84 O2 Saturation: 96 Height: 5 ft 11 in Weight: 260 lb Body Mass Index: 36.2 BMI Classification: Obese Impression and Plan 1. Obstructive Sleep Apnea-Hypopnea Syndrome, mild, with good treatment compliance and good apnea control. On CPAP therapy, the patient has better sleep quality and is more rested overall. He has been liking his nasal pillows mask better thatn the full face mask but to does get some dryness in his nostrils now. Nasal dryness can be reduced with increasing the CPAP humidity as shown on sample device and the heated hose can be increased if condensation. In addition, I gave the patient a few samples of Stacey Ease nasal cream to be used nightly for 2 weeks and then as needed. He voiced understanding and agreement with plan. Patient's apnea severity and rationale for treatment to reduce apnea, improve sleep quality and reduce cardiovascular and cerebrovascular events was reviewed. I also reviewed the benefit of consistent device use of CPAP for hypertension. * Continue auto CPAP pressure at 4-6 cmH2O * Notify me if snoring with mask or feeling that the pressure is too much or too little * Attempt to lose weight * Call this office if any problems using CPAP * Return for follow up in 1 year, or sooner if concerns arise Counseling Topics: Spare mask, Weight loss health impact Visit Type: In Office Time Spent with Patient (minutes): 17 Provider Statement: I spent 100% of the Face to Face Visit with the patient with greater than 50% spent counseling the patient and coordination of care.
== END 2020-01-11 14:42 | disposition home or self-care (01) ==
LOC: SC 14:41
PROVIDERS: ATTEND Nurse Practitioner Family
DX: G47.33 Obstructive sleep apnea (adult) (pediatric) (principal); E66.9 Obesity, unspecified; Z68.36 Body mass index [BMI] 36.0-36.9, adult
CPT/HCPCS: 99212

== ENCOUNTER 2020-01-15 15:59 | Emergency (ER) | payer OTHER ==
--- NOTE | 2020-01-15 16:40 | ED Physician Documentation ---
History of Present Illness - Stated complaint Stated Complaint: BACK PX - Chief complaint Chief Complaint: Abd Pain - History obtained from History obtained from: Patient - History of Present Illness Timing: Prior to arrival - Additonal information Additional information: 60-year-old male presents the emergency department for evaluation of right flank pain. He reports that it has been getting progressively worse for the last week and he had vomiting this afternoon. He does report a history of previous kidney stones. About 30 years ago however he did develop obstruction and required a stent to be placed which was subsequently removed. Patient denies any fevers dysuria urgency or frequency. No obvious hematuria. Review of Systems Constitutional: denies: Fever, Chills Eyes: reports: Reviewed and negative Ears: reports: Reviewed and negative Nose: reports: Reviewed and negative Throat: reports: Reviewed and negative Cardiac: reports: Reviewed and negative Respiratory: reports: Reviewed and negative GI: reports: Abdominal Pain (right flank), Constipation (last BM yesterday) : reports: Reviewed and negative Skin: reports: Reviewed and negative Musculoskeletal: reports: Reviewed and negative Neurologic: reports: Reviewed and negative Psychiatric: denies: Depressed, Suicidal PD PAST MEDICAL HISTORY - Past Medical History Neuro: None - Past Surgical History HEENT: Other (wisdom teeth) - Present Medications Home Medications: Ambulatory Orders Medication Instructions Recorded Confirmed Pantoprazole Sodium [Protonix] 20 mg PO DAILY 11/25/17 11/28/17 Senna [Senokot] 8.6 mg PO DAILY 11/25/17 11/28/17 lisinopriL [Lisinopril] 20 mg PO DAILY 11/25/17 11/28/17 Indomethacin 25 - 50 mg PO Q6HR PRN #30 capsule 10/23/19 Hydrocodone/Acetaminophen 1 each PO BID PRN #15 tablet 01/15/20 [Hydrocodone-Acetamin 5-325 mg] Ibuprofen [Motrin] 600 mg PO Q6H PRN #30 tab 01/15/20 - Allergies Allergies/Adverse Reactions: Allergies Allergy/AdvReac Type Severity Reaction Status Date / Time No Known Drug Allergies Allergy Verified 01/15/20 16:07 - Social History Does the pt smoke?: No Smoking Status: Never smoker PD ED PE EXPANDED - General General: Alert, No acute distress, Well developed/nourished - HEENT HEENT: Atraumatic, PERRL - Neck Neck: No: Adenopathy - Cardiac Cardiac: Regular Rate, Regular Rhythm, Radial strong equal, Cap refill < 2 sec. No: Murmur Present - Respiratory Respiratory: Clear to ausultation gabino. No: Distress, Labored - Abdomen Abdomen: Normal Bowel sounds, Other (Mild right CVA tenderness with percussion. Mild right flank pain. Negative McBurney's negative Islas's.) - Back Back: CVA TTP right. No: CVA TTP left - Derm Derm: Normal color. No: Rash, Petecchiae, Purpura - Extremities Extremities: Normal - Neuro Neuro: Alert and Oriented X 3, CNII-XII intact - GCS Eye Opening: Spontaneous Motor: Obeys Commands Verbal: Oriented Total: 15 Results - Vitals Vitals: Vital Signs - 24 hr 01/15/20 01/15/20 16:01 18:06 Temperature 36.7 C 36.5 C Heart Rate 88 84 Respiratory 16 15 Rate Blood Pressure 154/83 H 152/84 H O2 Saturation 96 99 Oxygen O2 Source Room air - Labs Labs: Laboratory Tests 01/15/20 01/15/20 01/15/20 16:08 16:35 16:35 WBC 17.9 H RBC 5.08 Hgb 15.8 Hct 44.9 MCV 88.4 MCH 31.1 H MCHC 35.2 RDW 12.2 Plt Count 282 MPV 9.2 Neut # (Auto) 14.8 H Lymph # (Auto) 1.7 [place] # (Auto) 1.2 H Eos # (Auto) 0.0 Baso # (Auto) 0.1 Absolute Nucleated RBC 0.00 Nucleated RBC % 0.0 Sodium 133 L Potassium 4.1 Chloride 100 L Carbon Dioxide 20 L Anion Gap 13.0 BUN 21 H Creatinine 1.1 Estimated GFR (MDRD) 68 L Glucose 114 H Calcium 8.9 Total Bilirubin 1.2 H AST 19 ALT 28 Alkaline Phosphatase 65 Total Protein 7.4 Albumin 4.3 Globulin 3.1 Albumin/Globulin Ratio 1.4 Lipase 26 Urine Color YELLOW Urine Clarity CLEAR Urine pH 6.0 Ur Specific [place] 1.020 Urine Protein 30 H Urine Glucose (UA) NEGATIVE Urine Ketones TRACE Urine Occult Blood LARGE H Urine Nitrite NEGATIVE Urine Bilirubin NEGATIVE Urine Urobilinogen 0.2 (NORMAL) Ur Leukocyte Esterase NEGATIVE Urine RBC TNTC H Urine WBC 0-3 Ur Squamous Epith Cells NONE SEEN Urine Bacteria None Seen Ur Microscopic Review INDICATED Urine Culture Comments NOT INDICATED - Rads (name of study) CT abd wo Radiology: Final report received (Obstructing right proximal ureteral calculus with severe right-sided hydronephrosis. Nonobstructing bilateral renal calculi. Exophytic mass along the lateral aspect of the left kidney previously identified on ultrasound however likely indeterminate possibly simple cyst) PD MEDICAL DECISION MAKING - ED course Complexity details: reviewed results, re-evaluated patient, considered differential, d/w patient, d/w family ED course: 60-year-old male here with 1 week of right flank pain. He does have a history of previous left nephrolithiasis and did require a ureter stent nearly 30 years ago. Today on labs a do note a leukocytosis of 17,000 but no signs of infection in the urine. I feel this is likely marginalization or stress reaction. He has preserved kidney function. CT noncontrast of the abdomen shows a 9 mm obstructing stone with severe hydro on the right side of the abdomen. Reassuringly his pain is well controlled following Dilaudid. This gentleman will be discharged to follow-up with Dr. Reyna of urology in [place]. will RX motrin and prn norco. Emergent return precautions were discussed and they include worsening pain, fevers hematuria or lower leg swelling. Departure - Departure Disposition: 01 Home, Self Care Clinical Impression: Hydronephrosis concurrent with and due to calculi of kidney and ureter Condition: Stable Record reviewed to determine appropriate education?: Yes Instructions: Hydronephrosis Ch, ED Stone Renal W Colic Follow-Up: Doyle Reyna MD [Physician No Access] - Prescriptions: Hydrocodone/Acetaminophen [Hydrocodone-Acetamin 5-325 mg] 1 each PO BID PRN #15 tablet PRN Reason: Pain Ibuprofen [Motrin] 600 mg PO Q6H PRN #30 tab PRN Reason: Pain Comments: Call you do have a 9 mm ureter stone that is causing severe swelling of your right kidney. You do need to be seen by a urologist as soon as possible. Shaye roberts call Dr. Reyna's office tomorrow for follow-up. If at any point you are having worsening pain despite the Vicodin and ibuprofen please return immediately to the emergency department
[2020-01-15 16:41] LABS: BASOPHILS # (AUTO) 0.1 10^3/uL (0.0-0.1); BASOPHILS % (AUTO) 0.3 %; EOSINOPHILS % (AUTO) 0.1 %; HGB - HEMOGLOBIN 15.8 g/dL (14.0-18.0); LYMPHOCYTES # (AUTO) 1.7 10^3/uL (1.5-3.5); LYMPHOCYTES % (AUTO) 9.4 %; MEAN CORPUSCULAR HEMOGLOBIN 31.1 pg (27.0-31.0); MEAN CORPUSCULAR HGB CONC 35.2 g/dL (32.0-36.0); MEAN CORPUSCULAR VOLUME 88.4 fL (80.0-94.0); MEAN PLATELET VOLUME 9.2 fL (7.4-11.4); MONOCYTES # (AUTO) 1.2 10^3/uL (0.0-1.0); MONOCYTES % (AUTO) 6.9 %; NEUTROPHILS # (AUTO) 14.8 10^3/uL (1.5-6.6); NEUTROPHILS % (AUTO) 82.6 %; PLT - PLATELET COUNT 282 10^3/uL (130-450); RED BLOOD COUNT 5.08 10^6/uL (4.70-6.10); RED CELL DISTRIBUTION WIDTH 12.2 % (12.0-15.0); WHITE BLOOD COUNT 17.9 x10^3/uL (4.8-10.8)
[2020-01-15 16:56] LABS: ALBUMIN 4.3 g/dL (3.2-5.5); ALBUMIN/GLOBULIN RATIO 1.4 (1.0-2.2); BILIRUBIN,TOTAL 1.2 mg/dL (0.2-1.0); CALCIUM 8.9 mg/dL (8.5-10.3); CREATININE 1.1 mg/dL (0.6-1.2); TOTAL PROTEIN 7.4 g/dL (6.7-8.2)
--- NOTE | 2020-01-15 17:06 | CT Report ---
PROCEDURE: Abdomen/Pelvis WO INDICATIONS: right flank pain; hx of nephrolithiasis TECHNIQUE: Noncontrast 5 mm thick sections acquired from the diaphragms to the symphysis. 5 mm coronal and sagi ttal reformats were then performed. For radiation dose reduction, the following was used: automated exposure control, adjustment of mA and/or kV according to patient size. COMPARISON: Abdomen ultrasound 09/21/2017. FINDINGS: Image quality: Excellent. ABDOMEN: Lung bases: Lung bases are clear. Heart size is normal. Solid organs: Liver is enlarged with steatosis. The spleen is normal in size. Gallbladder Pancrea s is normal in contours. No adrenal nodules. There is severe right hydronephrosis and proximal hydro ureter. 9 mm proximal right ureteral calculus is present Hounsfield units 1370. Prominent perinephric stranding is present. Punctate nonobstructing right inferior pole renal calcifications are present. The left kidney demonstrates an 8 mm nonobstructing inferior pole calcification, Hounsfield units 117 0. 2 additional nonobstructing inferior pole calcifications are present. Exophytic left renal mass is present with Hounsfield units borderline for simple cyst. Peritoneum and bowel: Unenhanced bowel loops demonstrate normal wall thickness and caliber. No free fluid or air. Nodes and vessels: No retroperitoneal or mesenteric adenopathy by size criteria. Aorta and inferior vena cava are normal in caliber. Miscellaneous: No ventral hernias. PELVIS: Genitourinary: Bladder wall thickness is normal. Miscellaneous: Bilateral fat-containing inguinal hernias are present. Bones: No suspicious bony lesions. No vertebral body compression fractures. IMPRESSION: 1. Obstructing right proximal ureteral calculus. 2. Nonobstructing bilateral renal calculi. 3. Exophytic mass along the lateral aspect of the left kidney. This was previously identified on ultr asound. It was not well characterized, appearing indeterminate for a simple cyst. Further evaluation of this region with ultrasound is recommended to document stability in appearance and/for better visu alization for determination of cyst versus potentially other etiologies.. Reviewed by: Amy Carpenter MD on 01/15/2020 5:04 PM PST Approved by: Amy Carpenter MD on 01/15/2020 5:04 PM PST Station ID: [id number]
[2020-01-15 17:37] LABS: BILIRUBIN,URINE NEGATIVE (NEGATIVE); GLUCOSE, URINE (UA) NEGATIVE (NEGATIVE); KETONES,URINE (UA) TRACE mg/dL (NEGATIVE); LEUKOCYTE ESTERASE, URINE NEGATIVE (NEGATIVE); NITRITE,URINE NEGATIVE (NEGATIVE); OCCULT BLOOD,URINE LARGE (NEGATIVE); PROTEIN,URINE 30 mg/dL (NEGATIVE); UROBILINOGEN,URINE 0.2 (NORMAL) E.U./dL (NORMAL)
[2020-01-15 17:38] LABS: CLARITY,URINE CLEAR (CLEAR)
[2020-01-15] MEDS ORDERED: HYDROmorphone 1 MG/ML CARPUJECT IVP STA (17:43)
[2020-01-15] MEDS ORDERED: SODIUM CHLORIDE 0.9% 1,000 ML IV STA (17:43)
[2020-01-15 18:02] LABS: BACTERIA,URINE None Seen /HPF (None Seen); RBC,URINE TNTC /HPF (0-5); SQUAMOUS EPITHELIAL CELL,UR NONE SEEN (<= Few)
[2020-01-15 19:18] VITALS: BP 133/74
== END 2020-01-15 19:40 | disposition home or self-care (01) ==
LOC: ED 15:59
DX: N13.2 Hydronephrosis with renal and ureteral calculous obstruction (principal)
CPT/HCPCS: 36415; 74176; 80053; 81001; 83690; 85025; 96361; 96374; 99284; J1170; 81003; 87086

== ENCOUNTER 2020-04-15 07:07 | Outpatient (CLI) | payer OTHER ==
[2020-04-15 13:08] LABS: BASOPHILS # (AUTO) 0.1 10^3/uL (0.0-0.1); BASOPHILS % (AUTO) 0.7 %; EOSINOPHILS # (AUTO) 0.1 10^3/uL (0.0-0.7); EOSINOPHILS % (AUTO) 1.3 %; HGB - HEMOGLOBIN 14.6 g/dL (14.0-18.0); LYMPHOCYTES # (AUTO) 2.4 10^3/uL (1.5-3.5); MEAN CORPUSCULAR HEMOGLOBIN 31.4 pg (27.0-31.0); MEAN CORPUSCULAR VOLUME 95.3 fL (80.0-94.0); MONOCYTES # (AUTO) 0.7 10^3/uL (0.0-1.0); MONOCYTES % (AUTO) 7.7 %; NEUTROPHILS # (AUTO) 5.3 10^3/uL (1.5-6.6); NEUTROPHILS % (AUTO) 61.9 %; PLT - PLATELET COUNT 299 10^3/uL (130-450); RED BLOOD COUNT 4.65 10^6/uL (4.70-6.10); RED CELL DISTRIBUTION WIDTH 12.3 % (12.0-15.0); WHITE BLOOD COUNT 8.5 x10^3/uL (4.8-10.8)
[2020-04-15 14:19] LABS: ALBUMIN 4.4 g/dL (3.2-5.5); ALBUMIN/GLOBULIN RATIO 1.6 (1.0-2.2); ALKALINE PHOSPHATASE 71 IU/L (42-121); ALT ALANINE AMINOTRANSFERASE 45 IU/L (10-60); AST ASPARTATE AMINOTRANSFERASE 34 IU/L (10-42); BILIRUBIN,TOTAL 0.6 mg/dL (0.2-1.0); BUN - BLOOD UREA NITROGEN 16 mg/dL (6-20); CARBON DIOXIDE - CO2 27 mmol/L (21-32); CHLORIDE 102 mmol/L (101-111); CHOL/HDL RATIO 4.3 (<5.0); CHOLESTEROL 162 mg/dL; CREATININE 0.9 mg/dL (0.6-1.2); GLUCOSE 115 mg/dL (70-100); HDL CHOLESTEROL 38 mg/dL; LDL CHOLESTEROL,CALCULATED 71 mg/dL; LDL/HDL RATIO 1.9 (<3.6); TOTAL PROTEIN 7.1 g/dL (6.7-8.2); VLDL CHOLESTEROL 53 mg/dL
[2020-04-15 14:38] LABS: CREATININE,URINE 125.6 mg/dL; MICROALBUM/CREATININE RATIO,UR 47.8 ug/mg (<30.0)
[2020-04-15 15:10] LABS: HEMOGLOBIN A1c% 5.2 % (4.27-6.07)
== END 2020-04-15 07:08 | disposition home or self-care (01) ==
LOC: LAB.WCP 07:07
PROVIDERS: ATTEND Internal Medicine
DX: I10 Essential (primary) hypertension (principal); E74.39 Other disorders of intestinal carbohydrate absorption; M10.9 Gout, unspecified; Z87.442 Personal history of urinary calculi
CPT/HCPCS: 36415; 80053; 80061; 82043; 82570; 83036; 83721; 83970; 84443; 84550; 85025

== ENCOUNTER 2020-05-08 16:53 | Outpatient (CLI) | payer OTHER ==
--- NOTE | 2020-05-09 11:58 | Ultrasound Report ---
PROCEDURE: Duplex Lwr Ext Arterial Bilat INDICATIONS: NOCTURNAL MUSCLE SPASM TECHNIQUE: Color and pulse Doppler interrogation was performed of both lower extremity arterial systems, with im age documentation. COMPARISON: None FINDINGS: Right lower extremity: Common femoral artery: 97.4 cm/sec, with triphasic flow. Deep femoral artery: 62.9 cm/sec, with triphasic flow. Proximal superficial femoral artery: 74.6 cm/sec, with triphasic flow. Mid superficial femoral artery: 83.7 cm/sec, with triphasic flow. Distal superficial femoral artery: 91.1 cm/sec, with triphasic flow. Popliteal artery: 63.8 cm/sec, with triphasic flow. Posterior tibial artery: 62.3 cm/sec, with biphasic flow. Anterior tibial artery/dorsalis pedis: 62.3/48.4 cm/sec, with biphasic flow. Waterman-scale imaging description: Calcified plaque is seen throughout the right lower extremity. Left lower extremity: Common femoral artery: 99.7 cm/sec, with triphasic flow. Deep femoral artery: 64.5 cm/sec, with biphasic flow. Proximal superficial femoral artery: 94.0 cm/sec, with triphasic flow. Mid superficial femoral artery: 105.4 cm/sec, with triphasic flow. Distal superficial femoral artery: 85.4 cm/sec, with triphasic flow. Popliteal artery: 56.2 cm/sec, with triphasic flow. Posterior tibial artery: 73.5 cm/sec, with biphasic/triphasic flow. Anterior tibial artery/dorsalis pedis: 53.0/44.4 cm/sec, with triphasic/biphasic flow. [place]-scale imaging description: IMPRESSION: Biphasic and triphasic waveforms throughout both lower extremities are consistent with n o significant stenosis. Reviewed by: Warren Salazar on 05/09/2020 11:56 AM PST Approved by: Warren Salazar on 05/09/2020 11:56 AM PST Station ID: [id number]
== END 2020-05-08 16:54 | disposition home or self-care (01) ==
LOC: DI 16:53
PROVIDERS: ATTEND Internal Medicine
DX: M62.838 Other muscle spasm (principal)
CPT/HCPCS: 93925

== ENCOUNTER 2021-03-16 08:00 | Outpatient (CLI) | payer OTHER ==
[2021-03-16 20:04] LABS: BASOPHILS # (AUTO) 0.1 10^3/uL (0.0-0.1); BASOPHILS % (AUTO) 0.7 %; EOSINOPHILS # (AUTO) 0.1 10^3/uL (0.0-0.7); EOSINOPHILS % (AUTO) 1.2 %; HGB - HEMOGLOBIN 15.9 g/dL (14.0-18.0); LYMPHOCYTES % (AUTO) 23.5 %; MEAN CORPUSCULAR HEMOGLOBIN 30.8 pg (27.0-31.0); MEAN CORPUSCULAR HGB CONC 33.1 g/dL (32.0-36.0); MEAN PLATELET VOLUME 9.9 fL (7.4-11.4); MONOCYTES # (AUTO) 0.5 10^3/uL (0.0-1.0); MONOCYTES % (AUTO) 5.9 %; NEUTROPHILS # (AUTO) 5.8 10^3/uL (1.5-6.6); NEUTROPHILS % (AUTO) 68.2 %; PLT - PLATELET COUNT 286 10^3/uL (130-450); RED BLOOD COUNT 5.16 10^6/uL (4.70-6.10); RED CELL DISTRIBUTION WIDTH 12.5 % (12.0-15.0); WHITE BLOOD COUNT 8.4 x10^3/uL (4.8-10.8)
[2021-03-16 20:30] LABS: ALBUMIN/GLOBULIN RATIO 1.3 (1.0-2.2); ALKALINE PHOSPHATASE 88 IU/L (42-121); ALT ALANINE AMINOTRANSFERASE 52 IU/L (10-60); AST ASPARTATE AMINOTRANSFERASE 48 IU/L (10-42); BILIRUBIN,TOTAL 0.8 mg/dL (0.2-1.0); BUN - BLOOD UREA NITROGEN 12 mg/dL (6-20); CALCIUM 8.9 mg/dL (8.5-10.3); CARBON DIOXIDE - CO2 26 mmol/L (21-32); CHLORIDE 103 mmol/L (101-111); CHOL/HDL RATIO 4.2 (<5.0); CHOLESTEROL 148 mg/dL; CREATININE 0.8 mg/dL (0.6-1.2); GFR - MDRD 98 (>89); GLUCOSE 163 mg/dL (70-100); HDL CHOLESTEROL 35 mg/dL; LDL CHOLESTEROL,CALCULATED 79 mg/dL; LDL/HDL RATIO 2.3 (<3.6); POTASSIUM 4.4 mmol/L (3.5-5.0); SODIUM 139 mmol/L (135-145); TOTAL PROTEIN 7.2 g/dL (6.7-8.2); TRIGLYCERIDES 172 mg/dL; VLDL CHOLESTEROL 34 mg/dL
[2021-03-16 20:42] LABS: CREATININE,URINE 189.6 mg/dL; MICROALBUM/CREATININE RATIO,UR 131.9 ug/mg (<30.0)
[2021-03-16 20:44] LABS: ESTIMATED AVERAGE GLUCOSE 169 mg/dL (70-100); HEMOGLOBIN A1c% 7.5 % (4.27-6.07)
[2021-03-16 20:57] LABS: THYROID STIMULATING HORMONE 1.34 uIU/mL (0.34-5.60)
== END 2021-03-16 23:59 | disposition home or self-care (01) ==
LOC: LAB.WCP 08:00
PROVIDERS: ATTEND Internal Medicine
DX: I10 Essential (primary) hypertension (principal); E78.5 Hyperlipidemia, unspecified; R73.03 Prediabetes; E21.5 Disorder of parathyroid gland, unspecified; Z12.5 Encounter for screening for malignant neoplasm of prostate; F41.9 Anxiety disorder, unspecified
CPT/HCPCS: 36415; 80053; 80061; 82043; 82570; 83036; 83721; 83970; 84153; 84443; 85025

== ENCOUNTER 2021-05-25 18:09 | Outpatient (CLI) | payer OTHER ==
--- NOTE | 2021-05-26 11:35 | Ultrasound Report ---
PROCEDURE: Retroperitoneal INDICATIONS: RENAL CYST TECHNIQUE: Real-time scanning was performed of the retroperitoneal organs, with image documentation. COMPARISON: CT of the abdomen dated 01/15/2020. FINDINGS: Kidneys: Kidneys are normal in size. Right kidney measures 14.3 cm long; left kidney measures 15.8 cm long. Right renal cortical thickness is 1.3 cm; left renal cortical thickness is 2.1 cm. There is right post void pelviectasis. There is a simple right lower pole renal cyst. There is a left midpole left renal cyst with thin internal septation. No vascularity. Nonobstructing calculi are visualized within the left lower pole suggesting nonobstructing calculi. Bladder: Prevoid volume of 190 cc, postvoid volume of 12 cc. Prostate measures 3.7 x 3.5 x 3.7 cm. Bi lateral ureteral jets are visualized. IMPRESSION: 1. Mild right post void pelviectasis without alejandra hydronephrosis. Findings are markedly decreased in extent when compared with the abdomen CT from 2020. 2. Nonobstructing lower pole left renal calculi. These are likely unchanged from the 2020 abdominal [address] T. 3. Bilateral simple renal cysts. Left cyst has an internal septation but no vascularity. 4. No significant post void residual. Reviewed by: Kimi Arcos MD on 05/26/2021 11:34 AM PDT Approved by: Kimi Arcos MD on 05/26/2021 11:34 AM PDT Station ID: [id number]
== END 2021-05-25 18:10 | disposition home or self-care (01) ==
LOC: DI 18:09
PROVIDERS: ATTEND Internal Medicine
DX: N28.1 Cyst of kidney, acquired (principal); N28.89 Other specified disorders of kidney and ureter; K91.86 Retained cholelithiasis following cholecystectomy

== ENCOUNTER 2022-08-24 07:21 | Outpatient (CLI) | payer OTHER ==
[2022-08-24 11:45] LABS: BASOPHILS # (AUTO) 0.1 10^3/uL (0.0-0.1); BASOPHILS % (AUTO) 0.7 %; EOSINOPHILS # (AUTO) 0.2 10^3/uL (0.0-0.7); EOSINOPHILS % (AUTO) 1.7 %; HCT - HEMATOCRIT 48.4 % (42.0-52.0); HGB - HEMOGLOBIN 16.3 g/dL (14.0-18.0); LYMPHOCYTES # (AUTO) 2.4 10^3/uL (1.5-3.5); LYMPHOCYTES % (AUTO) 27.5 %; MEAN CORPUSCULAR HEMOGLOBIN 29.9 pg (27.0-31.0); MEAN CORPUSCULAR HGB CONC 33.7 g/dL (32.0-36.0); MEAN CORPUSCULAR VOLUME 88.8 fL (80.0-94.0); MEAN PLATELET VOLUME 10.4 fL (7.4-11.4); MONOCYTES # (AUTO) 0.6 10^3/uL (0.0-1.0); NEUTROPHILS # (AUTO) 5.4 10^3/uL (1.5-6.6); NEUTROPHILS % (AUTO) 62.8 %; PLT - PLATELET COUNT 223 10^3/uL (130-450); RED BLOOD COUNT 5.45 10^6/uL (4.70-6.10); RED CELL DISTRIBUTION WIDTH 12.5 % (12.0-15.0); WHITE BLOOD COUNT 8.7 x10^3/uL (4.8-10.8)
[2022-08-24 12:27] LABS: ESTIMATED AVERAGE GLUCOSE 163 mg/dL (70-100); HEMOGLOBIN A1c% 7.3 % (4.27-6.07)
[2022-08-24 12:34] LABS: ALBUMIN 4.1 g/dL (3.2-5.5); ALBUMIN/GLOBULIN RATIO 1.1 (1.0-2.2); ALKALINE PHOSPHATASE 67 IU/L (42-121); ALT ALANINE AMINOTRANSFERASE 51 IU/L (10-60); AST ASPARTATE AMINOTRANSFERASE 48 IU/L (10-42); BILIRUBIN,TOTAL 0.8 mg/dL (0.2-1.0); BUN - BLOOD UREA NITROGEN 16 mg/dL (6-20); CALCIUM 8.8 mg/dL (8.5-10.3); CARBON DIOXIDE - CO2 22 mmol/L (21-32); CHLORIDE 104 mmol/L (101-111); CHOL/HDL RATIO 4.8 (<5.0); CHOLESTEROL 153 mg/dL; CREATININE 0.7 mg/dL (0.6-1.2); GFR - MDRD 114 (>89); GLUCOSE 159 mg/dL (70-100); HDL CHOLESTEROL 32 mg/dL; LDL CHOLESTEROL,CALCULATED 67 mg/dL; LDL/HDL RATIO 2.1 (<3.6); POTASSIUM 3.6 mmol/L (3.5-5.0); SODIUM 138 mmol/L (135-145); TOTAL PROTEIN 7.8 g/dL (6.7-8.2); TRIGLYCERIDES 268 mg/dL; URIC ACID 4.3 mg/dL (2.6-7.2); VLDL CHOLESTEROL 54 mg/dL
== END 2022-08-24 07:22 | disposition home or self-care (01) ==
LOC: LAB.N 07:21
PROVIDERS: ATTEND Internal Medicine
DX: E78.5 Hyperlipidemia, unspecified (principal); E11.9 Type 2 diabetes mellitus without complications; Z12.5 Encounter for screening for malignant neoplasm of prostate; M10.9 Gout, unspecified; I10 Essential (primary) hypertension
CPT/HCPCS: 36415; 80053; 80061; 83036; 83721; 84153; 84550; 85025

== ENCOUNTER 2023-02-17 07:20 | Outpatient (CLI) | payer MEDICARE, OTHER ==
[2023-02-17 12:02] LABS: ESTIMATED AVERAGE GLUCOSE 169 mg/dL (70-100); HEMOGLOBIN A1c% 7.5 % (4.27-6.07)
[2023-02-17 12:15] LABS: CALCIUM 9.5 mg/dL (8.5-10.3); CREATININE 0.9 mg/dL (0.6-1.3); POTASSIUM 3.9 mmol/L (3.5-4.5)
== END 2023-02-17 07:21 | disposition home or self-care (01) ==
LOC: LAB.N 07:20
PROVIDERS: ATTEND Internal Medicine
DX: E11.9 Type 2 diabetes mellitus without complications (principal)
CPT/HCPCS: 36415; 80048; 83036

== ENCOUNTER 2023-05-12 07:39 | Day surgery (SDC) | payer MEDICARE, OTHER ==
[~2023-05-12 07:39] MED LIST: PROPARACAINE 0.5% OPHTH DROPS 15 ML ONE
[2023-05-12] MEDS: LACTATED RINGERS 1,000 ML IV ONE ×2 (07:50→09:37)
[2023-05-12] MEDS: PROPARACAINE 0.5% OPHTH DROPS 15 ML EACHEYE ONE ×2 (08:10→09:26)
[2023-05-12] MEDS: KETOROLAC 0.45% OPHTH DROPS ONE (08:12)
[2023-05-12] MEDS: PHENYLEPHRINE 2.5% OPHTH 2 ML DROPS LEFTEYE ONE (08:13)
[2023-05-12] MEDS: CYCLOPENTOLATE 1% OPHTH DROPS 2 ML LEFTEYE ONE (08:15)
[2023-05-12] MEDS ORDERED: EPINEPHrine 1 MG/ML AMP ONE (08:44)
[2023-05-12] MEDS ORDERED: BRIMONIDINE 0.2% OPHTH DROPS 5 ML ONE (08:46)
[2023-05-12] MEDS ORDERED: BSS/LIDOCAINE/EPINEPHRINE 1 ML VIAL ONE (08:46)
[2023-05-12] MEDS ORDERED: TIMOLOL 0.5% OPHTH DROPS ONE (08:46)
[2023-05-12] MEDS ORDERED: fentaNYL 100 MCG/2 ML VIAL ONE (08:49)
[2023-05-12] MEDS ORDERED: MIDAZOLAM 2 MG/2 ML VIAL ONE (08:49)
--- NOTE | 2023-05-12 09:03 | ANESTHESIA ---
Pre-Anesthesia VS, & Labs - Diagnosis left cataract - Procedure left cataract extraction with IOL Vital Signs: Temp Pulse Resp BP Pulse Ox O2 Flow Rate 36.7 C 78 18 140/80 H 96 05/12/23 07:50 05/12/23 07:50 05/12/23 07:50 05/12/23 07:50 05/12/23 07:50 Height: 5 ft 11 in Weight (kg): 124.1 kg Body Mass Index: 38.1 BMI Classification: Obese - NPO >8 hours - Lab Results Current Lab Results: Laboratory Tests 05/12/23 08:22: POC Whole Bld Glucose 163 H Home Medications and Allergies Home Medications: Ambulatory Orders Atorvastatin [Lipitor] 1 tab PO DAILY 05/11/23 Cyclobenzaprine [Flexeril] 1 tab PO DAILY 05/11/23 Empagliflozin [Jardiance] 25 mg PO DAILY 05/11/23 Losartan [Cozaar] 100 mg PO DAILY 05/11/23 Pantoprazole Sodium [Protonix] 20 mg PO DAILY 11/25/17 Atorvastatin [Lipitor] 1 tab PO DAILY 05/11/23 Cyclobenzaprine [Flexeril] 1 tab PO DAILY 05/11/23 Empagliflozin [Jardiance] 25 mg PO DAILY 05/11/23 Losartan [Cozaar] 100 mg PO DAILY 05/11/23 Allergies/Adverse Reactions: Allergies Allergy/AdvReac Type Severity Reaction Status Date / Time No Known Drug Allergies Allergy Verified 01/15/20 16:07 Anes History & Medical History - Anesthetic History Anesthesia Complications: reports: No previous complications - Medical History Cardiovascular: reports: Hypertension, High cholesterol Pulmonary: reports: COPD Gastrointestinal: reports: None Urinary: reports: None Neuro: reports: None Musculoskeletal: reports: None Endocrine/Autoimmune: reports: Other Blood Disorders: reports: None Skin: reports: None Smoking Status: Never smoker - Surgical History General: reports: Cholecystectomy, Hiatal hernia repair, Colonoscopy Eyes Ears Nose Throat (EENT): reports: Other Urologic: reports: Kidney stents Exam General: Alert, Oriented x3 Dental: WNL Mouth Opening: Greater than 4 Fingerbreadths Neck Mobility: Normal Mallampati classification: II Thyromental Distance: greater than 6 cm Respiratory: Lungs clear Cardiovascular: Regular rate Plan Anesthesia Type: MAC Consent for Procedure(s) Verified and Reviewed: Yes Code Status: Attempt Resuscitation ASA classification: 3-Severe systemic disease Is this case an emergency?: No
[2023-05-12] MEDS ORDERED: TRIAMCIN/MOXIFLOX OPHTHALMIC 0.6 ML VIAL IO ONE (09:13)
[2023-05-12] MEDS: TRIAMCIN/MOXIFLOX OPHTHALMIC 0.6 ML VIAL IO ONE (09:26)
[2023-05-12] MEDS: TIMOLOL 0.5% OPHTH DROPS OPTH ONE (09:26)
[2023-05-12] MEDS: BSS/LIDOCAINE/EPINEPHRINE 1 ML SYRINGE IO ONE (09:26)
[2023-05-12] MEDS: VANCOMYCIN OPHTH (TOPICAL) 10 MG/ML SYRINGE TOP ONE (09:26)
[2023-05-12] MEDS: BRIMONIDINE 0.2% OPHTH DROPS 5 ML OPTH ONE (09:26)
[2023-05-12] MEDS: EPINEPHrine 1 MG/ML AMP IR ONE (09:26)
[2023-05-12 09:48] VITALS: O2SAT 95
--- NOTE | 2023-05-12 09:52 | OPERATIVE REPORT ---
Operative Report - Other Other Information/Narrative: Date of Surgery: 05/12/23 Preop Dx: Visually significant cataract left eye. This was the first cataract surgery. Postop Dx: Same Procedure: Phacoemulsification with posterior chamber intraocular lens implant left eye Surgeon: Dr. Dony Garcia Anesthesia: Monitored anesthesia care Complications: None Operative Indications: This is a 63-year-old M with progressive vision loss in the left eye due to 2+ nuclear sclerotic, 2+ cortical, and vacuolar cataract. Best corrected visual acuity was 20/50 with glare to 20/250 vision in the left eye. Indications for surgery were: - Overall decrease in vision - Difficulty seeing words on a computer screen - Difficulty reading - Difficulty seeing words, closed captions, or game scores on TV - Difficulty seeing street signs - Difficulty driving in low light or at night - Difficulty driving at night because of headlights from other vehicles - Difficulty with glare or bright lights in any situation The patient was consented at length concerning the risks and benefits of cataract surgery after which the patient expressed a desire to proceed with surgery. Operative Procedure: The patient was taken into OR#3 and placed under monitored anesthesia care. A surgical time-out was conducted confirming correct patient, correct procedure, and correct surgical site. The patient was given topical anesthesia and then prepped and draped in the usual sterile fashion. The eye was entered at the 6 and 3 oclock positions. Intracameral Shugarcaine was injected into the anterior chamber followed by a dispersive viscoelastic. A continuous-tear curvilinear capsulorhexis was performed. The nucleus was hydrodissected and phacoemulsified. The cortex was evacuated using automated infusion and aspiration. A cohesive viscoelastic was injected into the capsular bag and a 19.0 diopter intraocular lens was inserted into the bag. Infusion and aspiration were used to evacuate the viscoelastic materials from the eye. The wounds were hydrated and the eye inflated to physiologic pressure using balanced salt solution. Approximately 0.25ml of a mixture of triamcinolone and moxifloxacin was injected trans-sclerally into the vitreous in the inferotemporal quadrant using a 30 gauge cannula. An additional 0.25ml of a mixture of triamcinolone and moxifloxacin was injected subconjunctivally in the superior quadrant for infection and inflammation prophylaxis. Wound integrity was checked with Weck-Wendy sponges. The patient was taken from the operating room in good condition and given post-op instructions.
[2023-05-12 09:58] VITALS: BP 167/74
--- NOTE | 2023-05-12 11:16 | ANESTHESIA POST OP EVALUATION ---
Anesthesia Post Eval - Post Anesthesia Eval Vitals: Last Vital Signs Temp 36.4 C L 05/12/23 09:55 Pulse 76 05/12/23 09:55 Resp 16 05/12/23 09:55 BP 167/74 H 05/12/23 09:55 Pulse Ox 95 05/12/23 09:55 O2 Flow Rate CV Function Including HR & BP: Stable Pain Control: Satisfactory Nausea & Vomiting: Negative Mental Status: Baseline Respiratory Status: Airway Patent Hydration Status: Satisfactory Anesthesia Complications: None
== END 2023-05-12 07:40 | disposition home or self-care (01) ==
LOC: SDS 07:39
PROVIDERS: ATTEND Ophthalmology
DX: E11.36 Type 2 diabetes mellitus with diabetic cataract (principal); H25.812 Combined forms of age-related cataract, left eye; E66.9 Obesity, unspecified; Z68.38 Body mass index [BMI] 38.0-38.9, adult; G47.33 Obstructive sleep apnea (adult) (pediatric)
CPT/HCPCS: 66984; A9270; J3490; J7120

== ENCOUNTER 2023-05-31 07:19 | Outpatient (CLI) | payer MEDICARE, OTHER ==
[2023-05-31 12:10] LABS: BASOPHILS # (AUTO) 0.1 10^3/uL (0.0-0.1); BASOPHILS % (AUTO) 0.9 %; EOSINOPHILS # (AUTO) 0.1 10^3/uL (0.0-0.7); EOSINOPHILS % (AUTO) 1.5 %; HCT - HEMATOCRIT 52.2 % (42.0-52.0); HGB - HEMOGLOBIN 16.6 g/dL (14.0-18.0); LYMPHOCYTES # (AUTO) 2.4 10^3/uL (1.5-3.5); LYMPHOCYTES % (AUTO) 27.4 %; MEAN CORPUSCULAR HEMOGLOBIN 29.8 pg (27.0-31.0); MEAN CORPUSCULAR HGB CONC 31.8 g/dL (32.0-36.0); MEAN CORPUSCULAR VOLUME 93.7 fL (80.0-94.0); MEAN PLATELET VOLUME 10.3 fL (7.4-11.4); MONOCYTES # (AUTO) 0.6 10^3/uL (0.0-1.0); MONOCYTES % (AUTO) 6.5 %; NEUTROPHILS # (AUTO) 5.6 10^3/uL (1.5-6.6); NEUTROPHILS % (AUTO) 63.2 %; PLT - PLATELET COUNT 231 10^3/uL (130-450); RED BLOOD COUNT 5.57 10^6/uL (4.70-6.10); WHITE BLOOD COUNT 8.8 x10^3/uL (4.8-10.8)
[2023-05-31 12:33] LABS: URIC ACID 4.9 mg/dL (4.4-7.6)
[2023-05-31 12:43] LABS: THYROID STIMULATING HORMONE 2.12 uIU/mL (0.34-5.60)
== END 2023-05-31 07:20 | disposition home or self-care (01) ==
LOC: LAB.N 07:19
PROVIDERS: ATTEND Internal Medicine
DX: F41.9 Anxiety disorder, unspecified (principal); M10.9 Gout, unspecified; I10 Essential (primary) hypertension
CPT/HCPCS: 36415; 84443; 84550; 85025

== ENCOUNTER 2023-09-09 13:15 | Outpatient (CLI) | payer MEDICARE, OTHER ==
[2023-09-09 17:53] LABS: BASOPHILS # (AUTO) 0.1 10^3/uL (0.0-0.1); BASOPHILS % (AUTO) 0.6 %; EOSINOPHILS # (AUTO) 0.2 10^3/uL (0.0-0.7); EOSINOPHILS % (AUTO) 1.5 %; HCT - HEMATOCRIT 52.5 % (42.0-52.0); HGB - HEMOGLOBIN 17.2 g/dL (14.0-18.0); LYMPHOCYTES # (AUTO) 2.8 10^3/uL (1.5-3.5); MEAN CORPUSCULAR HGB CONC 32.8 g/dL (32.0-36.0); MEAN CORPUSCULAR VOLUME 91.6 fL (80.0-94.0); MEAN PLATELET VOLUME 10.2 fL (7.4-11.4); MONOCYTES # (AUTO) 0.6 10^3/uL (0.0-1.0); MONOCYTES % (AUTO) 6.3 %; NEUTROPHILS # (AUTO) 6.3 10^3/uL (1.5-6.6); NEUTROPHILS % (AUTO) 63.2 %; PLT - PLATELET COUNT 255 10^3/uL (130-450); RED BLOOD COUNT 5.73 10^6/uL (4.70-6.10); RED CELL DISTRIBUTION WIDTH 12.4 % (12.0-15.0); WHITE BLOOD COUNT 9.9 x10^3/uL (4.8-10.8)
[2023-09-09 18:04] LABS: ALBUMIN 4.5 g/dL (3.2-5.5); ALBUMIN/GLOBULIN RATIO 1.4 (1.0-2.2); ALKALINE PHOSPHATASE 70 IU/L (42-121); ALT ALANINE AMINOTRANSFERASE 43 IU/L (10-60); AST ASPARTATE AMINOTRANSFERASE 38 IU/L (10-42); BILIRUBIN,TOTAL 0.9 mg/dL (0.2-1.0); BUN - BLOOD UREA NITROGEN 17 mg/dL (6-20); CALCIUM 9.8 mg/dL (8.5-10.3); CARBON DIOXIDE - CO2 24 mmol/L (21-32); CHLORIDE 102 mmol/L (101-111); CHOLESTEROL 186 mg/dL; CREATININE 0.8 mg/dL (0.6-1.3); GFR - MDRD 97 (>89); GLUCOSE 168 mg/dL (74-104); HDL CHOLESTEROL 37 mg/dL; POTASSIUM 3.9 mmol/L (3.5-4.5); SODIUM 138 mmol/L (135-145); TOTAL PROTEIN 7.8 g/dL (6.4-8.9); TRIGLYCERIDES 431 mg/dL (48-352)
[2023-09-09 18:08] LABS: CREATININE,URINE 54.2 mg/dL; MICROALBUM/CREATININE RATIO,UR 505.5 ug/mg (<30.0); MICROALBUMIN,URINE 27.4 mg/dL
[2023-09-09 18:22] LABS: LDL CHOLESTEROL,DIRECT 102 mg/dL (75-193); LDLD/HDL RATIO 2.8 (<3.6)
[2023-09-09 20:33] LABS: ESTIMATED AVERAGE GLUCOSE 186 mg/dL (70-100); HEMOGLOBIN A1c% 8.1 % (4.27-6.07)
== END 2023-09-09 13:16 | disposition home or self-care (01) ==
LOC: LAB.N 13:15
PROVIDERS: ATTEND Internal Medicine
DX: E11.9 Type 2 diabetes mellitus without complications (principal); N40.0 Benign prostatic hyperplasia without lower urinary tract symptoms; E78.5 Hyperlipidemia, unspecified; G47.33 Obstructive sleep apnea (adult) (pediatric)
CPT/HCPCS: 36415; 80053; 80061; 82043; 82570; 83036; 83721; 84153; 85025